=== PATIENT | male | born 1955 | race Two or more races ===

== ENCOUNTER 2017-12-17 09:42 | Emergency (ER) | payer MEDICAID ==
[~2017-12-17] VITALS: Ht 172.7 cm; Wt 60.0 kg
[~2017-12-17 09:42] MED LIST: AMOX1TAB64 PO; INDO50CA PO; LISI-170 PO; METO25TA35 PO; PANT40TA3 PO; SULF1TAB24 PO
[2017-12-17 09:55] VITALS: BP 171/78
[2017-12-17] MEDS ORDERED: COLCHICINE 0.6 MG TABLET ONE ×2 (10:48→10:50)
[2017-12-17] MEDS ORDERED: COLCHICINE 0.6 MG TABLET PO ONE (11:00)
== END 2017-12-17 13:08 | disposition home or self-care (01) ==
LOC: ED 12:30
DX: J20.8 Acute bronchitis due to other specified organisms (principal); Z99.81 Dependence on supplemental oxygen; J42 Unspecified chronic bronchitis; M10.041 Idiopathic gout, right hand
CPT/HCPCS: 71046; 99284

== ENCOUNTER 2018-02-19 08:31 | Emergency (ER) | payer MEDICAID ==
[~2018-02-19] VITALS: Ht 175.3 cm; Wt 56.0 kg
[2018-02-19 08:34] VITALS: BP 196/98
== END 2018-02-19 10:24 | disposition home or self-care (01) ==
LOC: ED 10:17
DX: B86 Scabies (principal); M10.9 Gout, unspecified
CPT/HCPCS: 99283

== ENCOUNTER 2019-05-27 12:39 | Emergency (ER) | payer MEDICARE, MEDICAID ==
[~2019-05-27] VITALS: Ht 172.7 cm; Wt 62.0 kg
[2019-05-27 15:01] VITALS: BP 168/110
== END 2019-05-27 15:42 | disposition home or self-care (01) ==
LOC: ED 15:36
DX: I50.9 Heart failure, unspecified (principal); I11.0 Hypertensive heart disease with heart failure; E87.1 Hypo-osmolality and hyponatremia; D69.6 Thrombocytopenia, unspecified; N28.9 Disorder of kidney and ureter, unspecified; D64.9 Anemia, unspecified
CPT/HCPCS: 36415; 71046; 80053; 83880; 84484; 85025; 93005; 99284

== ENCOUNTER 2019-05-27 20:05 | Inpatient (IN) | payer MEDICARE, MEDICAID ==
[~2019-05-27] VITALS: Ht 172.7 cm; Wt 62.9 kg
[2019-05-31 13:35] VITALS: BP 143/80
== END 2019-05-31 13:13 | disposition home or self-care (01) | DRG 682 ==
LOC: ED 23:47 → EDIP 05-28 01:09 → 5SO 05-28 02:08
PROVIDERS: ADMIT Internal Medicine; ATTEND Internal Medicine
DX: N17.9 Acute kidney failure, unspecified (principal); I50.21 Acute systolic (congestive) heart failure; E87.1 Hypo-osmolality and hyponatremia; I11.0 Hypertensive heart disease with heart failure; F10.20 Alcohol dependence, uncomplicated; D53.9 Nutritional anemia, unspecified; D69.6 Thrombocytopenia, unspecified; E53.8 Deficiency of other specified B group vitamins; I45.81 Long QT syndrome; M10.9 Gout, unspecified; Z79.899 Other long term (current) drug therapy
CPT/HCPCS: 0399T; 36415; 71046; 80048; 80053; 82607; 83036; 83880; 84134; 84145; 84443; 84484; 85025; 93005; 93306; 99284; 99285; G0378; J1940; J0360; J3475

== ENCOUNTER 2021-05-03 16:40 | Emergency (ER) | payer MEDICARE, MEDICAID ==
[~2021-05-03] VITALS: Ht 172.7 cm; Wt 60.4 kg
[~2021-05-03 16:40] MED LIST changes: +ASPI81TA45 PO; +ATOR20TA37 PO; +CARV3.12 PO; +CARV6.2512 PO; -INDO50CA PO; +INDO50CA15 PO; +LISI5TAB7 PO; +LOSA25TA12 PO; +SPIR25TA5 PO; +SULF-23 PO; -SULF1TAB24 PO
--- NOTE | 2021-05-03 16:45 | NUR ---
NIL X1
--- NOTE | 2021-05-03 17:19 | NUR ---
PT IN GOWN IN [facility]. AWAITING ERP AT THIS TIME. PT EDUCATED ON ER PROCESS AND VERBALIZES UNDERSTANDING. PT HAS CALL LIGHT WITHIN REACH.
--- NOTE | 2021-05-03 17:49 | NUR ---
LAB AT . PT ATTACHED TO ALL VS AND CARDIAC MONITORS. VSS AT THIS TIME. EKG PERFORMED BY [facility], AT THIS TIME.
[2021-05-03 18:04] LABS: BASOPHILS % (AUTO) 1 % (0-1); EOSINOPHILS % (AUTO) 9 % (1-7); LYMPHOCYTES % (AUTO) 18 % (22-44); MEAN CORPUSCULAR HEMOGLOBIN 34.6 pg (27.5-34.5); MEAN CORPUSCULAR HGB CONC 34.7 g/dL (33.2-36.2); MEAN PLATELET VOLUME 6.9 fL (7.4-10.4); MONOCYTES % (AUTO) 13 % (2-9); NEUTROPHILS % (AUTO) 59 % (42-75); PLATELET COUNT 95 x10^3/uL (130-400); RED BLOOD COUNT 2.27 x10^6/uL (4.38-5.82); RED CELL DISTRIBUTION WIDTH 15.1 % (9.4-14.8)
[2021-05-03 18:17] LABS: ALANINE AMINOTRANSFERASE 51 U/L (12-78); ALBUMIN 3.5 g/dL (3.4-5.0); ANION GAP 8 mmol/L (5-15); CALCIUM 8.2 mg/dL (8.5-10.1); CHLORIDE 92 mmol/L (98-107)
[2021-05-03 18:21] LABS: ALKALINE PHOSPHATASE 105 U/L (45-117); BILIRUBIN,TOTAL 0.6 mg/dL (0.2-1.0); TOTAL PROTEIN 7.7 g/dL (6.4-8.2); TROPONIN I < 0.015 ng/mL (0.000-0.045)
[2021-05-03 18:57] VITALS: BP 176/91
[2021-05-03] MEDS ORDERED: DIPHENHYDRAMINE 50 MG/ML, 1ML IVPush ONE (19:00)
--- NOTE | 2021-05-03 20:01 | NUR ---
REPORT OF PT TO [facility]A VALDEZ. ALL QUESTIONS ANSWERED.
== END 2021-05-03 20:13 | disposition left against medical advice (07) ==
LOC: ED 17:20
DX: D64.9 Anemia, unspecified (principal); E87.1 Hypo-osmolality and hyponatremia; R60.0 Localized edema; I11.0 Hypertensive heart disease with heart failure; I50.9 Heart failure, unspecified; R07.9 Chest pain, unspecified
CPT/HCPCS: 36415; 71045; 80053; 83880; 84484; 85025; 86850; 86900; 93005; 99285